=== PATIENT | female | born 2000 | race Caucasian/White ===

== ENCOUNTER 2022-01-07 04:25 | Emergency (ER) | payer OTHER ==
[2022-01-07 04:56] LABS: Urine Blood 3+ (Negative); Urine Glucose Negative (Negative); Urine Protein 2+ (Negative); Urine Specific Gravity >=1.030 (1.005-1.030)
[2022-01-07] MEDS ORDERED: IBUPROFEN 400 MG TAB ONE (05:02)
[2022-01-07] MEDS ORDERED: IBUPROFEN 200 MG TAB PO ONE (05:02)
[2022-01-07 05:34] LABS: Urine Bacteria 20-50 /HPF (<20); Urine RBC 21-50 /HPF (None Seen)
--- NOTE | 2022-01-07 05:56 | EDPHYS ---
Physician Documentation [facility] Name: Pamela Rodríguez Age: 21 yrs Sex: Female : 2000 Arrival Date: 01/07/2022 Time: 04:29 Bed 20 Private MD: ED Physician Gretel Finch HPI: 01/07 04:48 This 21 yrs old Female presents to ER via Ambulatory with complaints of Back Pain. sd2 04:48 21 yo F presents with CC of R flank pain that started acutely around 3AM this morning. sd2 She reports nausea and vomiting at time of onset of pain. None currently. Denies fevers, diarrhea, dysuria or hematuria. No prior history of kidney stones. Reports history of kidney infections in the past that have felt very similar to her current symptoms. Denies any chance of . 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 - Social history:: Smoking status: Patient denies any tobacco usage or history of. ROS: 04:48 Constitutional: Negative for fever, chills, and weight loss, Eyes: Negative for injury, sd2 pain, redness, and discharge, Cardiovascular: Negative for chest pain, palpitations, and edema, Respiratory: Negative for shortness of breath, cough, wheezing. Abdomen/GI: Positive for abdominal pain, nausea, vomiting, Negative for diarrhea. Back: Negative for injury, positive for flank pain : Negative for dysuria, urinary frequency, hesitancy, urgency and hematuria. MS/Extremity: Negative for injury and deformity, Skin: Negative for injury, rash, and discoloration, Neuro: Negative for headache, numbness and tingling. Exam: 04:48 Constitutional: This is a well developed, well nourished patient who is awake, alert, sd2 and in no acute distress. Head/Face: Normocephalic, atraumatic. Eyes: EOMI, normal conjunctiva bilaterally Chest/axilla: Normal chest wall appearance and motion. Nontender with no deformity. Cardiovascular: Regular rate and rhythm with a normal S1 and S2. No gallops, murmurs, or rubs. 2+ distal pulses. Respiratory: Lungs have equal breath sounds bilaterally, clear to auscultation and percussion. No rales, rhonchi or wheezes noted. No increased work of breathing, no retractions or nasal flaring. Abdomen/GI: Soft, ND, mild R sided mid abdominal tenderness, no rebound or guarding Skin: Warm, dry with normal turgor. Normal color with no rashes, no lesions, and no evidence of cellulitis. MS/ Extremity: Pulses equal, no cyanosis. Neurovascular intact. Full, normal range of motion. Ambulatory without difficulty. Psych: Awake, alert, with orientation to person, place and time. Behavior, mood, and affect are within normal limits. Vital Signs: 04:42 Weight 58.97 kg (R); Height 5 ft. 7 in. (170.18 cm) (R); Pain 7/10; bb 04:50 BP 114 / 77; Pulse 73; Resp 17 S; Temp 97.5(O); Pulse Ox 98% on R/A; lg3 05:47 BP 108 / 70; Pulse 66; Resp 17 S; Pulse Ox 99% on R/A; lg3 04:42 Body Mass Index 20.36 (58.97 kg, 170.18 cm) bb MDM: 04:48 Patient medically screened. sd2 04:48 Differential diagnosis: UTI, pyelonephritis, kidney stone, MSK, contusion among others. sd2 Data reviewed: vital signs, nurses notes. 05:53 Data reviewed: lab test result(s), urinalysis. Counseling: I had a detailed discussion sd2 with the patient and/or guardian regarding: the historical points, exam findings, and any diagnostic results supporting the discharge/admit diagnosis, lab results, the need for outpatient follow up, to return to the emergency department if symptoms worsen or persist or if there are any questions or concerns that arise at home. Medical screen evaluation completed. EMTALA emergency medical condition absent. ED course: Labs reviewed. COnsistent with UTI along with patient's flank pain consistent with pyelonephritis. Pt treated with IBuprofen with significant relief. Reports no prior history of resistance to antibiotics. Will discharge with oral antibiotics. Verbalizes understanding of discharge plan and strict return precautions. . 01/07 04:57 Order name: Urine Dipstick-Ancillary; Complete Time: 05:21 [facility] 01/07 05:10 Order name: Urine Microscopic Only; Complete Time: 05:41 [facility] 01/07 05:38 Order name: Urine Culture [facility] 01/07 04:44 Order name: Urine Dipstick-Ancillary (obtain specimen); Complete Time: 05:00 [facility] 01/07 04:44 Order name: Urine Test (obtain specimen); Complete Time: 05:00 3 Administered Medications: 05:05 Drug: Ibuprofen 600 mg Route: PO; lg3 06:07 Follow up: Response: No adverse reaction; Marked relief of symptoms lg3 06:06 Drug: KeFLEX (cephalexin) 500 mg Route: PO; lg3 06:07 Follow up: Response: No adverse reaction lg3 Disposition Summary: 01/07/22 05:54 Discharge Ordered Location: Home sd2 Problem: new sd2 Symptoms: have improved sd2 Condition: Stable sd2 Diagnosis - Pyelonephritis acute sd2 Followup: sd2 - With: Private Physician - When: 2 - 3 days - Reason: Recheck today's complaints, Continuance of care, Re-evaluation by your physician Discharge Instructions: - Discharge Summary Sheet sd2 - Pyelonephritis, Adult sd2 Forms: - Medication Reconciliation Form sd2 - Thank You Letter sd2 - Antibiotic Education sd2 - Prescription Opioid Use sd2 Prescriptions: - Cephalexin 500 mg Oral Capsule - take 1 capsule by ORAL route every 12 hours for 14 days; 28 capsule; Refills: sd2 0, Product Selection Permitted Signatures: Dispatcher [employer] Rosa Maria Sanchez RN RN bb Anay Tejeda RN RN lg3 Gretel Finch MD MD sd2
--- NOTE | 2022-01-07 05:56 | ER ---
Nurse's Notes [facility] Name: Pamela Rodríguez Age: 21 yrs Sex: Female : 2000 Arrival Date: 01/07/2022 Time: 04:29 Bed 20 Private MD: Diagnosis: Pyelonephritis acute Presentation: 01/07 04:42 Chief complaint: Patient states: she woke up about 0300 with right sided back pain 7/10 bb and she has had some burning with urinatioin. Coronavirus screen: At this time, the client does not indicate any symptoms associated with coronavirus-19. Ebola Screen: No symptoms or risks identified at this time. Initial Sepsis Screen: Does the patient meet any 2 criteria? No. Patient's initial sepsis screen is negative. Does the patient have a suspected source of infection? No. Patient's initial sepsis screen is negative. Risk Assessment: Do you want to hurt yourself or someone else? Patient reports no desire to harm self or others. Onset of symptoms was January 07, 2022. 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 - Social history:: Smoking status: Patient denies any tobacco usage or history of. Screenin:50 Abuse screen: Denies threats or abuse. Denies injuries from another. Nutritional lg3 screening: No deficits noted. Tuberculosis screening: No symptoms or risk factors identified. Fall Risk None identified. Assessment: 04:50 General: Appears in no apparent distress. uncomfortable, Behavior is calm, cooperative. lg3 Pain: Complains of pain in right flank Pain radiates to right lower quadrant Quality of pain is described as sharp, shooting, squeezing, Noted to be grimacing, guarding, resistant to movement. Neuro: No deficits noted. Saez Agitation-Sedation Scale (RASS): 0 - Alert and Calm Level of Consciousness is awake, alert, obeys commands, Oriented to person, place, time, situation. Cardiovascular: No deficits noted. Denies chest pain, shortness of breath, Capillary refill < 3 seconds Clubbing of nail beds is absent JVD is absent Patient's skin is warm and dry. Respiratory: No deficits noted. Airway is patent Trachea midline Respiratory effort is even, unlabored, Respiratory pattern is regular, symmetrical, Breath sounds are clear bilaterally. GI: Abdomen is flat, non-distended, Bowel sounds present X 4 quads. Abd is soft X 4 quads Abdomen is tender to palpation in right lower quadrant Reports lower abdominal pain. : Reports burning with urination, inability to void, urinary frequency. EENT: No deficits noted. No signs and/or symptoms were reported regarding the EENT system. Derm: No deficits noted. No signs and/or symptoms reported regarding the dermatologic system. Skin is intact, is healthy with good turgor, Skin is dry, Skin is normal, Skin temperature is warm. Musculoskeletal: No deficits noted. No signs and/or symptoms reported regarding the musculoskeletal system. Circulation, motion, and sensation intact. Range of motion: intact in all extremities. 05:47 Reassessment: Patient appears in no apparent distress at this time. No changes from lg3 previously documented assessment. Patient and/or family updated on plan of care and expected duration. Pain level reassessed. Patient is alert, oriented x 3, equal unlabored respirations, skin warm/dry/pink. Vital Signs: 04:42 Weight 58.97 kg (R); Height 5 ft. 7 in. (170.18 cm) (R); Pain 7/10; bb 04:50 BP 114 / 77; Pulse 73; Resp 17 S; Temp 97.5(O); Pulse Ox 98% on R/A; lg3 05:47 BP 108 / 70; Pulse 66; Resp 17 S; Pulse Ox 99% on R/A; lg3 04:42 Body Mass Index 20.36 (58.97 kg, 170.18 cm) bb ED Course: 04:29 Patient arrived in ED. bp1 04:33 Gretel Finch MD is Attending Physician. sd2 04:43 Triage completed. bb 04:43 Arm band placed on Patient placed in an exam room, on a stretcher, on pulse oximetry. bb Family accompanied patient. 04:50 Tejeda, Anay, RN is Primary Nurse. lg3 04:50 Patient has correct armband on for positive identification. Placed in gown. Bed in low lg3 position. Call light in reach. Side rails up X 1. Client placed on continuous cardiac and pulse oximetry monitoring. NIBP monitoring applied. Door closed. Noise minimized. Warm blanket given. Family accompanied patient. 06:07 No provider procedures requiring assistance completed. Patient did not have IV access lg3 during this emergency room visit. Administered Medications: 05:05 Drug: Ibuprofen 600 mg Route: PO; lg3 06:07 Follow up: Response: No adverse reaction; Marked relief of symptoms lg3 06:06 Drug: KeFLEX (cephalexin) 500 mg Route: PO; lg3 06:07 Follow up: Response: No adverse reaction lg3 Medication: 06:07 VIS not applicable for this client. lg3 Outcome: 05:54 Discharge ordered by . sd2 06:07 Discharged to home ambulatory, with family. lg3 06:07 Condition: stable 06:07 Discharge instructions given to patient, Instructed on discharge instructions, follow up and referral plans. medication usage, Demonstrated understanding of instructions, follow-up care, medications, Prescriptions given X 1. 06:08 Patient left the ED. lg3 Addendum: 01/09/2022 11:22 Addendum: Culture Results: Positive urine culture. Bacteria is resistant to, has s s intermediate sensitivity, or is not tested against prescribed antibiotics. Report given to ANTHONY for further evaluation and then to cloth examiner for follow up with patient. Phone call Attempt #1 No answer. Left VM. Signatures: Ros aMaria Vera RN RN bb Smirch, Shelby, RN RN Anay Tejeda, ADRIAN CAMPBELL lg3 Kamilla Ruvalcaba Stephanie, MD MD sd2
[2022-01-07] MEDS ORDERED: CEPHALEXIN 250 MG CAP ONE (05:57)
[2022-01-09 17:35] VITALS: TEMP 97.5
[2022-01-09 17:36] VITALS: BP 108/70; O2SAT 99
== END 2022-01-07 06:08 | disposition home or self-care (01) ==
LOC: ER 04:25
DX: N10 Acute pyelonephritis (principal)
CPT/HCPCS: 81003; 81015; 87077; 87086; 87088; 87186; 99283